=== PATIENT | female | born 1960 | race Hispanic/Latino ===

== ENCOUNTER 2024-01-07 00:18 | Emergency (ER) | payer BC ==
[2024-01-07 01:11] LABS: Actual Bicarbonate (HCO3v) 23.6 mEq/L (22-28); Base Excess -0.1 mEq/L (-2.0 to +3.0); Calcium, Ionized (venous) 1.12 mmol/L (1.16-1.32); Chloride (VBG) 104 mmol/L (98-106); Hematocrit-VBG 42 % (36.0-47.0); Hemoglobin (Hb) 14.4 g/dL (11.7-16.1); Potassium (VBG) 3.69 mmol/L (3.70-5.30); Sodium 140 mmol/L (133-146); pH (venous) 7.441 (7.32-7.43)
[2024-01-07 01:23] LABS: #Eosinphils 0.3 thou/uL (0.0-0.7); #Monocytes 0.7 thou/uL (0.11-0.59); #Neutrophils 7.1 thou/uL (1.40-6.50); %Basophils 0.2 % (0.0-1.0); %Eosinophils 2.9 % (0.0-10.0); %Lymphocytes 17.4 % (21.0-51.0); %Monocytes 7.3 % (0.0-10.0); %Neutrophils 72.1 % (42.0-75.0); Hemoglobin 13.5 g/dL (12.0-16.0); Mean Corpuscular HGB CONC 33.8 g/dL (32.0-36.0); Mean Corpuscular Hemoglobin 29.5 pg (27.0-31.0); Mean Corpuscular Volume 87.5 fl (78.0-98.0); Mean Platelet Volume 9.4 fL (7.4-10.4); Platelet Count 343 10x3/uL (130-400); RBC Distribution Width 12.4 % (11.5-14.5); Red Blood Cell (RBC) Count 4.57 mill/uL (4.20-5.40); White Blood Cell (WBC) Count 9.8 10x3/uL (4.8-10.8)
[2024-01-07 01:46] LABS: Troponin I Less than 0.010 ng/mL (< 0.028)
[2024-01-07 01:53] LABS: ALT (SGPT) 30 U/L (8-55); AST (SGOT) 26 U/L (5-34); Albumin 4.3 g/dL (3.4-4.8); Alkaline Phosphatase 125 U/L (40-110); Anion Gap 17 mmol/L (10-20); BUN (Urea Nitrogen) 14 mg/dL (9.8-20.1); Bilirubin, Total 0.3 mg/dL (0.2-1.2); Calc. Creatinine Clearance 0 mL/min (70-130); Calcium 9.5 mg/dL (7.8-10.44); Carbon Dioxide 19 mmol/L (23-31); Chloride 105 mmol/L (98-107); Estimated GFR 93; Globulin 3.8 g/dL (2.4-3.5); Glucose 213 mg/dL (80-115); Lipase 19 U/L (8-78); Magnesium 1.9 mg/dL (1.6-2.6); Potassium 4.3 mmol/L (3.5-5.1); Protein, Total 8.1 g/dL (5.8-8.1); Sodium 137 mmol/L (136-145)
[2024-01-07 01:59] LABS: Phosphorus 2.2 mg/dL (2.3-4.7)
[2024-01-07] MEDS ORDERED: Aspirin Chewable 81 MG TAB ONE (02:02)
[2024-01-07 03:58] LABS: Bilirubin Negative (Negative); Blood, Urine Trace (Negative); CAUTI Indications for Culture Pelvic or flank pain; Clarity Clear (Clear); Glucose, Urine (Dipstick) 200 mg/dL (Negative); Ketone, Urine Negative (Negative); Leukocyte Negative Leu/uL (Negative); Nitrite Negative (Negative); Protein, Urine (Dipstick) Negative (Neg-Trace); RBC/HPF 0-3 HPF (0-3); Specific Gravity, Urine 1.006 (1.002-1.036); Squamous Epithelial None Seen HPF (0-3); Urobilinogen Normal mg/dL (Less than 2); WBC/HPF 0-3 HPF (0-3); pH, Urine 6.5 (5.0-9.0)
[2024-01-07 03:59] LABS: Bacteria/HPF 1+ HPF (None Seen)
[2024-01-07 04:00] LABS: Urine Culture Reflex No No
== END 2024-01-07 05:06 | disposition home or self-care (01) ==
LOC: ERS 00:18
DX: E11.65 Type 2 diabetes mellitus with hyperglycemia (principal); Z79.84 Long term (current) use of oral hypoglycemic drugs
CPT/HCPCS: 36416; 80053; 81001; 82010; 82805; 83690; 83735; 84100; 84484; 85025; 93005

== ENCOUNTER 2024-07-14 22:38 | Inpatient (IN) | payer BC, MEDICARE ==
[2024-07-14 22:54] LABS: #Basophils 0.03 10x3/uL (0.0-0.2); %Basophils 0.4 % (0.0-1.0); %Eosinophils 2.9 % (0.0-10.0); %Monocytes 9.8 % (0.0-10.0); %Neutrophils 51.8 % (42.0-75.0); Hematocrit 41.2 % (36.0-47.0); Hemoglobin 13.7 g/dL (12.0-16.0); Mean Corpuscular HGB CONC 33.3 g/dL (32.0-36.0); Mean Corpuscular Hemoglobin 30.5 pg (27.0-31.0); Mean Corpuscular Volume 91.8 fL (78.0-98.0); Mean Platelet Volume 9.2 fL (7.4-10.4); Platelet Count 393 10x3/uL (130-400); RBC Distribution Width 13.4 % (11.5-14.5); Red Blood Cell (RBC) Count 4.49 mill/uL (4.20-5.40)
[2024-07-14 23:07] LABS: ALT (SGPT) 18 U/L (8-55); AST (SGOT) 24 U/L (5-34); Alkaline Phosphatase 89 U/L (40-110); Anion Gap 14 mmol/L (10-20); BUN (Urea Nitrogen) 24 mg/dL (9.8-20.1); Bilirubin, Total 0.3 mg/dL (0.2-1.2); Calc. Creatinine Clearance 0 mL/min (70-130); Carbon Dioxide 21 mmol/L (23-31); Chloride 108 mmol/L (98-107); Estimated GFR 71; Globulin 4.4 g/dL (2.4-3.5); Glucose 124 mg/dL (80-115); Potassium 4.1 mmol/L (3.5-5.1); Protein, Total 8.4 g/dL (5.8-8.1); Sodium 139 mmol/L (136-145)
[2024-07-14 23:32] LABS: Troponin I Less than 0.010 ng/mL (< 0.028)
[2024-07-15] MEDS ORDERED: Ondansetron PF 4 MG/2 ML Vial IVP PRN (01:39)
[2024-07-15] MEDS ORDERED: Acetaminophen 650 MG Suppository PR PRN (01:39)
[2024-07-15] MEDS ORDERED: Acetaminophen 325 MG TAB PO PRN (01:39)
[2024-07-15] MEDS ORDERED: Ondansetron ODT 4 MG TAB PO PRN (01:39)
[2024-07-15 01:46] VITALS: BMI 38.9
[2024-07-15 03:06] LABS: #Basophils Less than 0.03 10x3/uL (0.0-0.2); %Basophils 0.2 % (0.0-1.0); %Eosinophils 1.4 % (0.0-10.0); %Lymphocytes 18.6 % (21.0-51.0); %Monocytes 7.7 % (0.0-10.0); %Neutrophils 71.7 % (42.0-75.0); Hematocrit 37.6 % (36.0-47.0); Mean Corpuscular HGB CONC 31.9 g/dL (32.0-36.0); Mean Corpuscular Hemoglobin 30.2 pg (27.0-31.0); Mean Corpuscular Volume 94.5 fL (78.0-98.0); Platelet Count 316 10x3/uL (130-400); RBC Distribution Width 13.2 % (11.5-14.5); Red Blood Cell (RBC) Count 3.98 mill/uL (4.20-5.40)
[2024-07-15 03:31] LABS: ALT (SGPT) 15 U/L (8-55); AST (SGOT) 19 U/L (5-34); Albumin 3.5 g/dL (3.4-4.8); Alkaline Phosphatase 86 U/L (40-110); Anion Gap 14 mmol/L (10-20); BUN (Urea Nitrogen) 19 mg/dL (9.8-20.1); Bilirubin, Total 0.3 mg/dL (0.2-1.2); Calc. Creatinine Clearance 111 mL/min (70-130); Calcium 8.8 mg/dL (7.8-10.44); Carbon Dioxide 18 mmol/L (23-31); Chloride 112 mmol/L (98-107); Estimated GFR 94; Globulin 3.3 g/dL (2.4-3.5); Glucose 163 mg/dL (80-115); Potassium 3.3 mmol/L (3.5-5.1); Protein, Total 6.8 g/dL (5.8-8.1); Sodium 141 mmol/L (136-145)
[2024-07-15 05:04] LABS: Troponin I 1.828 ng/mL (< 0.028)
[2024-07-15] MEDS ORDERED: Electrolyte Replacement Protocol 1 EACH FS SCH (06:19)
[2024-07-15] MEDS: Enoxaparin 100 MG (1 mL) SYRINGE SC SCH ×2 (06:34→21:16)
[2024-07-15 06:36] LABS: Troponin I 2.087 ng/mL (< 0.028)
[2024-07-15] MEDS: Famotidine 20 MG TAB PO SCH (08:36)
[2024-07-15] MEDS: Lisinopril 10 MG TAB PO SCH (08:36)
[2024-07-15] MEDS: Famotidine/PF 20 mg/2ml Vial SLOW IVP SCH (08:42)
[2024-07-15] MEDS: Potassium Chloride 20 MEQ TAB PO SCH (08:43)
[2024-07-15] MEDS: cefTRIAXone\\ROCEPHIN 1 GM in Sodium Chloride 0.9% 100 ML IVPB SCH (09:35)
[2024-07-15] MEDS: Azithromycin 500 MG in Sodium Chloride 0.9% 250 ML 250 ML IVPB SCH (09:42)
[2024-07-15 10:31] LABS: Critical Call Chem Troponin I RESULT DECREASING; Troponin I 1.424 ng/mL (< 0.028)
[2024-07-15] MEDS: Atorvastatin Calcium 40 MG TAB PO SCH (20:12)
[2024-07-15] MEDS: Glimepiride 4 MG TAB PO SCH (21:56)
[2024-07-16 04:47] LABS: #Basophils Less than 0.03 10x3/uL (0.0-0.2); %Basophils 0.3 % (0.0-1.0); %Eosinophils 3.5 % (0.0-10.0); %Lymphocytes 36.9 % (21.0-51.0); %Monocytes 13.3 % (0.0-10.0); %Neutrophils 45.8 % (42.0-75.0); Hemoglobin 11.9 g/dL (12.0-16.0); Mean Corpuscular HGB CONC 33.1 g/dL (32.0-36.0); Mean Corpuscular Hemoglobin 29.9 pg (27.0-31.0); Mean Corpuscular Volume 90.5 fL (78.0-98.0); Mean Platelet Volume 9.4 fL (7.4-10.4); Platelet Count 308 10x3/uL (130-400); RBC Distribution Width 13.4 % (11.5-14.5); Red Blood Cell (RBC) Count 3.98 mill/uL (4.20-5.40)
[2024-07-16 05:01] LABS: Anion Gap 10 mmol/L (10-20); BUN (Urea Nitrogen) 15 mg/dL (9.8-20.1); Calc. Creatinine Clearance 123 mL/min (70-130); Calcium 8.6 mg/dL (7.8-10.44); Carbon Dioxide 21 mmol/L (23-31); Chloride 114 mmol/L (98-107); Estimated GFR 97; Glucose 126 mg/dL (80-115); Potassium 3.6 mmol/L (3.5-5.1); Sodium 141 mmol/L (136-145)
[2024-07-16] MEDS: metFORMIN 500 MG TAB PO SCH (09:22)
[2024-07-16] MEDS: Carvedilol 3.125 MG TAB PO SCH (09:22)
[2024-07-16] MEDS: Potassium Chloride 20 MEQ TAB PO SCH (14:10)
[2024-07-17 05:04] LABS: #Basophils Less than 0.03 10x3/uL (0.0-0.2); %Basophils 0.3 % (0.0-1.0); %Eosinophils 3.6 % (0.0-10.0); %Lymphocytes 39.3 % (21.0-51.0); %Monocytes 12.9 % (0.0-10.0); %Neutrophils 43.7 % (42.0-75.0); Hematocrit 35.7 % (36.0-47.0); Hemoglobin 11.6 g/dL (12.0-16.0); Mean Corpuscular HGB CONC 32.5 g/dL (32.0-36.0); Mean Corpuscular Hemoglobin 29.7 pg (27.0-31.0); Mean Corpuscular Volume 91.5 fL (78.0-98.0); Mean Platelet Volume 9.6 fL (7.4-10.4); Platelet Count 317 10x3/uL (130-400); RBC Distribution Width 13.6 % (11.5-14.5)
[2024-07-17 05:26] LABS: Anion Gap 10 mmol/L (10-20); BUN (Urea Nitrogen) 16 mg/dL (9.8-20.1); Calc. Creatinine Clearance 121 mL/min (70-130); Calcium 8.8 mg/dL (7.8-10.44); Carbon Dioxide 21 mmol/L (23-31); Chloride 112 mmol/L (98-107); Estimated GFR 97; Glucose 130 mg/dL (80-115); Potassium 3.9 mmol/L (3.5-5.1); Sodium 139 mmol/L (136-145)
[2024-07-18 05:36] LABS: #Basophils Less than 0.03 10x3/uL (0.0-0.2); %Basophils 0.4 % (0.0-1.0); %Eosinophils 4.8 % (0.0-10.0); %Lymphocytes 46.1 % (21.0-51.0); %Monocytes 10.6 % (0.0-10.0); %Neutrophils 37.9 % (42.0-75.0); Hematocrit 35.9 % (36.0-47.0); Hemoglobin 11.6 g/dL (12.0-16.0); Mean Corpuscular HGB CONC 32.3 g/dL (32.0-36.0); Mean Corpuscular Hemoglobin 30.9 pg (27.0-31.0); Mean Corpuscular Volume 95.7 fL (78.0-98.0); Mean Platelet Volume 9.5 fL (7.4-10.4); Platelet Count 288 10x3/uL (130-400); RBC Distribution Width 13.3 % (11.5-14.5); Red Blood Cell (RBC) Count 3.75 mill/uL (4.20-5.40)
[2024-07-18 05:56] LABS: Anion Gap 13 mmol/L (10-20); BUN (Urea Nitrogen) 14 mg/dL (9.8-20.1); Calc. Creatinine Clearance 113 mL/min (70-130); Carbon Dioxide 19 mmol/L (23-31); Chloride 111 mmol/L (98-107); Estimated GFR 95; Glucose 126 mg/dL (80-115); Potassium 3.5 mmol/L (3.5-5.1); Sodium 139 mmol/L (136-145)
[2024-07-18] MEDS: Potassium Chloride 20 MEQ TAB PO SCH (08:31)
[2024-07-18] MEDS: Azithromycin 500 MG VIAL ONE (13:31)
[2024-07-18 13:33] LABS: Magnesium 1.8 mg/dL (1.6-2.6)
[2024-07-18] MEDS: Magnesium 2 GM/50 ML(in water) 2 GM in Premix 1 BAG IVPB SCH (15:49)
[2024-07-19 03:46] LABS: #Basophils 0.04 10x3/uL (0.0-0.2); %Basophils 0.6 % (0.0-1.0); %Eosinophils 3.7 % (0.0-10.0); %Lymphocytes 39.8 % (21.0-51.0); %Monocytes 11.8 % (0.0-10.0); %Neutrophils 43.9 % (42.0-75.0); Hematocrit 36.3 % (36.0-47.0); Hemoglobin 11.7 g/dL (12.0-16.0); Mean Corpuscular HGB CONC 32.2 g/dL (32.0-36.0); Mean Corpuscular Hemoglobin 29.8 pg (27.0-31.0); Mean Corpuscular Volume 92.4 fL (78.0-98.0); Mean Platelet Volume 9.4 fL (7.4-10.4); Platelet Count 313 10x3/uL (130-400); RBC Distribution Width 13.2 % (11.5-14.5); Red Blood Cell (RBC) Count 3.93 mill/uL (4.20-5.40)
[2024-07-19 04:07] LABS: Anion Gap 10 mmol/L (10-20); BUN (Urea Nitrogen) 15 mg/dL (9.8-20.1); Calc. Creatinine Clearance 118 mL/min (70-130); Calcium 9.1 mg/dL (7.8-10.44); Carbon Dioxide 25 mmol/L (23-31); Chloride 110 mmol/L (98-107); Estimated GFR 96; Glucose 141 mg/dL (80-115); Potassium 3.8 mmol/L (3.5-5.1); Sodium 141 mmol/L (136-145)
[2024-07-19] MEDS ORDERED: Iopamidol 370 76% 100 ML VIAL ONE (08:16)
[2024-07-19] MEDS ORDERED: Heparin 10,000 UNITS/ 10 ML VIAL ONE ×2 (08:45→14:31)
[2024-07-19] MEDS ORDERED: Verapamil 5 MG/2 ML VIAL ONE ×2 (08:45→14:31)
[2024-07-19] MEDS ORDERED: Midazolam HCl 2 mg/2 ml Vial ONE (14:31)
[2024-07-19] MEDS ORDERED: Nitroglycerin 50 MG/250 ML BOT 250 ML ONE (14:31)
[2024-07-19] MEDS ORDERED: fentaNYL 50 mcg/mL 1 mL Vial ONE (14:31)
[2024-07-19] MEDS ORDERED: Acetaminophen/Codeine 30-300mg Tablet PO PRN ×2 (16:41)
[2024-07-19] MEDS ORDERED: Sodium Chloride 0.9% 200 ML IV PRN (16:41)
[2024-07-19] MEDS ORDERED: Nitroglycerin 0.4 MG TAB (25 Tab Bottle) SL PRN (16:41)
[2024-07-19] MEDS ORDERED: Diazepam 5 MG TAB PO PRN (17:05)
[2024-07-19] MEDS ORDERED: Communication Order-Pharmacy FS ONE (17:05)
[2024-07-20 04:08] LABS: #Basophils Less than 0.03 10x3/uL (0.0-0.2); %Basophils 0.4 % (0.0-1.0); %Eosinophils 3.8 % (0.0-10.0); %Lymphocytes 34.9 % (21.0-51.0); %Monocytes 12.3 % (0.0-10.0); %Neutrophils 48.4 % (42.0-75.0); Hematocrit 35.6 % (36.0-47.0); Hemoglobin 11.5 g/dL (12.0-16.0); Mean Corpuscular HGB CONC 32.3 g/dL (32.0-36.0); Mean Corpuscular Hemoglobin 30.3 pg (27.0-31.0); Mean Corpuscular Volume 93.9 fL (78.0-98.0); Mean Platelet Volume 9.3 fL (7.4-10.4); Platelet Count 322 10x3/uL (130-400); RBC Distribution Width 13.2 % (11.5-14.5); Red Blood Cell (RBC) Count 3.79 mill/uL (4.20-5.40)
[2024-07-20 04:20] LABS: Anion Gap 11 mmol/L (10-20); BUN (Urea Nitrogen) 14 mg/dL (9.8-20.1); Calc. Creatinine Clearance 113 mL/min (70-130); Carbon Dioxide 24 mmol/L (23-31); Cardiac Risk 2.7 (Less than 4.5); Chloride 110 mmol/L (98-107); Cholesterol 103 mg/dl (< 200 Desired); Estimated GFR 95; Glucose 93 mg/dL (80-115); HDL Cholesterol 38 mg/dL (>60 Neg Risk); LDL Cholesterol, Calculated 53 mg/dL; Potassium 3.6 mmol/L (3.5-5.1); Sodium 141 mmol/L (136-145); Triglycerides 59 mg/dL (Less than 150)
[2024-07-20] MEDS: FlunisoLIDE 0.025% Nasal Spray 25 ml Bottle EA NARE SCH (10:01)
[2024-07-20] MEDS ORDERED: Dexamethasone 4 mg/ml Vial ONE (10:26)
[2024-07-20] MEDS ORDERED: EPINEPHrine 1 MG/ML VIAL ONE (10:26)
[2024-07-20] MEDS ORDERED: PHENYLEPHRINE-NS 100 MCG/ML 10 ML SYRINGE ONE ×2 (10:26→11:48)
[2024-07-20] MEDS ORDERED: Bupivacaine PF 0.5% 30 ML VIAL ONE (10:27)
[2024-07-20] MEDS ORDERED: Albumin 5% 500 ML ONE (10:27)
[2024-07-20] MEDS ORDERED: Midazolam HCl 2 mg/2 ml Vial ONE ×3 (11:15→16:01)
[2024-07-20] MEDS ORDERED: Sodium Chloride 0.9% 100 ML ONE (11:36)
[2024-07-20] MEDS ORDERED: CEFAZOLIN 2 GM VIAL ONE (11:36)
[2024-07-20] MEDS ORDERED: Fentanyl 250 MCG/5 ML VIAL ONE (11:46)
[2024-07-20] MEDS ORDERED: PROPOFOL 20 ML ONE ×2 (11:48→16:03)
[2024-07-20] MEDS ORDERED: Etomidate 40 MG (20 mL) VIAL ONE (11:49)
[2024-07-20] MEDS ORDERED: CEFAZOLIN 2 GM in Sodium Chloride 0.9% 100 ML IVPB SCH (12:00)
[2024-07-20] MEDS ORDERED: Thrombin 5000 UNITS/5 ML VIAL ONE (12:59)
[2024-07-20] MEDS ORDERED: Heparin 5,000 UNITS/ML VIAL ONE (12:59)
[2024-07-20] MEDS ORDERED: Calcium Chloride 1 GM/10 ML Abboject SYRINGE ONE (12:59)
[2024-07-20] MEDS ORDERED: Cardioplegic Soln 1,000 ML BAG ONE (12:59)
[2024-07-20] MEDS ORDERED: Heparin 30,000 units/30 ml VIAL ONE (12:59)
[2024-07-20] MEDS ORDERED: Labetalol HCl 100 MG/20 ML VIAL ONE (12:59)
[2024-07-20] MEDS ORDERED: Lidocaine 1% PF 5 ML VIAL ONE (12:59)
[2024-07-20] MEDS ORDERED: Papaverine 60 MG/2 ML VIAL ONE (12:59)
[2024-07-20] MEDS ORDERED: Lidocaine 2% PF 100 mg/5 ml Syringe ONE (12:59)
[2024-07-20] MEDS ORDERED: Magnesium 5 GM/10 ML VIAL ONE (12:59)
[2024-07-20] MEDS ORDERED: Potassium Chloride 60 mEq (30 mL) VIAL ONE (12:59)
[2024-07-20] MEDS ORDERED: Sodium Bicarb 50 mEq/50 ML VIAL ONE (12:59)
[2024-07-20] MEDS ORDERED: Aminocaproic Acid 5 GM/20 ML VIAL ONE (12:59)
[2024-07-20] MEDS ORDERED: Mannitol 12.5 GM/50 ML ONE (12:59)
[2024-07-20] MEDS ORDERED: Vancomycin 1 GM VIAL ONE (12:59)
[2024-07-20] MEDS ORDERED: Protamine Sulfate 250 MG/25 ML VIAL ONE (12:59)
[2024-07-20] MEDS ORDERED: NOREPINEPHRINE 8 MG/250 ML-D5W 250 ML ONE (14:12)
[2024-07-20] MEDS ORDERED: Rocuronium Bromide 10 MG/ML (10ML VIAL) ONE (14:13)
[2024-07-20] MEDS ORDERED: Nitroglycerin 50 MG/250 ML BOT 250 ML IVPB PRN (16:21)
[2024-07-20] MEDS ORDERED: Albumin 5% 12.5 GM (250 mL) BOT IVPB PRN (16:21)
[2024-07-20] MEDS ORDERED: Post-Op Insulin Drip Protocol IVPB SCH (16:21)
[2024-07-20] MEDS ORDERED: Mag-Al 1200 mg/1200 mg/30 ML UDCUP PO PRN (16:21)
[2024-07-20] MEDS ORDERED: NOREPINEPHRINE 8 MG/250 ML-D5W 250 ML IVPB PRN (16:21)
[2024-07-20] MEDS ORDERED: Ipratropium/Albuterol 3 ML NEB NEB PRN (16:21)
[2024-07-20] MEDS ORDERED: Guaifenesin DM 100-10/5 ML UDCUP PO PRN (16:21)
[2024-07-20] MEDS ORDERED: fentaNYL 50 mcg/mL 1 mL Vial SLOW IVP PRN (16:21)
[2024-07-20] MEDS ORDERED: Morphine 2 MG/ML VIAL SLOW IVP PRN (16:21)
[2024-07-20] MEDS ORDERED: Bisacodyl 10 MG SUPP PR PRN (16:21)
[2024-07-20] MEDS ORDERED: Ondansetron PF 4 MG/2 ML Vial IVP PRN (16:21)
[2024-07-20] MEDS ORDERED: hydrALAZINE 20 MG/ML VIAL SLOW IVP PRN (16:21)
[2024-07-20] MEDS ORDERED: Dextrose 5% in Water 1,000 ML IV PRN (16:30)
[2024-07-20] MEDS ORDERED: Dextrose 50% Abboject 50 ML SYRINGE SLOW IVP PRN (16:30)
[2024-07-20] MEDS ORDERED: Glucagon 1 MG/ML KIT SC PRN (16:30)
[2024-07-20] MEDS ORDERED: Insulin Regular, Human 100 UNIT/ML 10 ML VIAL SC PRN (16:30)
[2024-07-20 16:40] LABS: Actual Bicarbonate (HCO3a) 20.9 mEq/L (22-28); Base Excess (BEa) -4.1 mEq/L (-2.0 to +3.0); CO2 Tension 38.1 mmHg (35.0-45.0); Calcium, Ionized (arterial) 1.17 mmol/L (1.12-1.30); Carboxyhemoglobin (COHb) 0.7 gm% (0.0-3.0); Hematocrit-ABG 29 % (36.0-47.0); Hemoglobin (Hb) 9.7 g/dL (12.0-16.0); O2 Tension (PaO2), arterial 67.1 mmHg (> 80.0); Potassium - ABG Lab 3.57 mmol/L (3.70-5.30); pH, Arterial 7.358 (7.35-7.45)
[2024-07-20 16:44] LABS: ALV-art Gradient 313.075 mmHg (0-20); Puncture Site Arterial Line
[2024-07-20 17:06] LABS: Anion Gap 10 mmol/L (10-20); BUN (Urea Nitrogen) 11 mg/dL (9.8-20.1); Calc. Creatinine Clearance 127 mL/min (70-130); Calcium 8.1 mg/dL (7.8-10.44); Carbon Dioxide 21 mmol/L (23-31); Chloride 117 mmol/L (98-107); Estimated GFR 98; Glucose 182 mg/dL (80-115); Potassium 3.6 mmol/L (3.5-5.1); Sodium 144 mmol/L (136-145)
[2024-07-20 17:08] LABS: #Basophils Less than 0.03 10x3/uL (0.0-0.2); %Basophils 0.2 % (0.0-1.0); %Eosinophils 1.1 % (0.0-10.0); %Lymphocytes 13.7 % (21.0-51.0); %Neutrophils 79.9 % (42.0-75.0); Hematocrit 27.9 % (36.0-47.0); Hemoglobin 8.8 g/dL (12.0-16.0); Mean Corpuscular HGB CONC 31.5 g/dL (32.0-36.0); Mean Corpuscular Hemoglobin 30.4 pg (27.0-31.0); Mean Corpuscular Volume 96.5 fL (78.0-98.0); Mean Platelet Volume 9.2 fL (7.4-10.4); Platelet Count 187 10x3/uL (130-400); RBC Distribution Width 13.4 % (11.5-14.5); Red Blood Cell (RBC) Count 2.89 mill/uL (4.20-5.40)
[2024-07-20 17:11] LABS: INR-International Normal Ratio 1.4; Prothrombin Time 16.8 sec (12.0-14.7)
[2024-07-20 17:12] LABS: PTT 37.6 sec (22.9-36.1)
[2024-07-20] MEDS: INSULIN REGULAR IN 0.9 % NACL 100 UNITS in Premix 1 BAG IVPB SCH (17:19)
[2024-07-20] MEDS: Magnesium 2 GM/50 ML(in water) 2 GM in Premix 1 BAG IVPB SCH (17:19)
[2024-07-20] MEDS: D5 1/2 NS w/20 mEq KCL 1,000 ML IV SCH (17:19)
[2024-07-20] MEDS: Ketorolac Tromethamine 30 MG (1 mL) VIAL IVP SCH (17:20)
[2024-07-20] MEDS: Albumin 5% 12.5 GM (250 mL) BOT IVPB PRN (17:30)
[2024-07-20] MEDS: Potassium Chloride 20 MEQ (100 mL) BAG IVPB PRN (18:39)
[2024-07-20] MEDS: Famotidine/PF 20 mg/2ml Vial SLOW IVP SCH (20:16)
[2024-07-20] MEDS: CEFAZOLIN 2 GM in Sodium Chloride 0.9% 100 ML IVPB SCH (20:16)
[2024-07-20 21:03] LABS: Actual Bicarbonate (HCO3a) 19.7 mEq/L (22-28); Base Excess (BEa) -4.1 mEq/L (-2.0 to +3.0); CO2 Tension 31.6 mmHg (35.0-45.0); Calcium, Ionized (arterial) 1.14 mmol/L (1.12-1.30); Carboxyhemoglobin (COHb) 0.6 gm% (0.0-3.0); Hematocrit-ABG 31 % (36.0-47.0); Hemoglobin (Hb) 10.5 g/dL (12.0-16.0); O2 Tension (PaO2), arterial 98.8 mmHg (> 80.0); Potassium - ABG Lab 3.69 mmol/L (3.70-5.30); pH, Arterial 7.413 (7.35-7.45)
[2024-07-20 21:06] LABS: Puncture Site LINE
[2024-07-20] MEDS: Sodium Bicarb 50 MEQ/50 ML Abboject 8.4% SYRINGE IVP SCH (21:10)
[2024-07-20] MEDS: fentaNYL 50 mcg/mL 1 mL Vial SLOW IVP PRN (21:27)
[2024-07-20] MEDS: Sodium Bicarb 50 MEQ/50 ML Abboject 8.4% SYRINGE ONE (21:27)
[2024-07-20] MEDS: Atorvastatin Calcium 40 MG TAB PO SCH (21:27)
[2024-07-20 23:39] LABS: Hematocrit 31.5 % (36.0-47.0); Hemoglobin 10.3 g/dL (12.0-16.0)
[2024-07-20 23:48] LABS: Potassium 3.4 mmol/L (3.5-5.1)
[2024-07-21 04:31] LABS: #Basophils Less than 0.03 10x3/uL (0.0-0.2); #Eosinphils Less than 0.03 10x3/uL (0.0-0.7); %Basophils 0.1 % (0.0-1.0); %Lymphocytes 6.8 % (21.0-51.0); %Monocytes 6.9 % (0.0-10.0); %Neutrophils 85.9 % (42.0-75.0); Hematocrit 30.7 % (36.0-47.0); Mean Corpuscular HGB CONC 32.6 g/dL (32.0-36.0); Mean Corpuscular Hemoglobin 30.9 pg (27.0-31.0); Mean Corpuscular Volume 94.8 fL (78.0-98.0); Mean Platelet Volume 9.4 fL (7.4-10.4); Platelet Count 202 10x3/uL (130-400); RBC Distribution Width 13.4 % (11.5-14.5); Red Blood Cell (RBC) Count 3.24 mill/uL (4.20-5.40)
[2024-07-21 04:54] LABS: Anion Gap 10 mmol/L (10-20); BUN (Urea Nitrogen) 9 mg/dL (9.8-20.1); Calc. Creatinine Clearance 129 mL/min (70-130); Calcium 8.2 mg/dL (7.8-10.44); Carbon Dioxide 21 mmol/L (23-31); Chloride 116 mmol/L (98-107); Estimated GFR 99; Glucose 134 mg/dL (80-115); Potassium 3.3 mmol/L (3.5-5.1); Sodium 144 mmol/L (136-145)
[2024-07-21] MEDS: traMADol HCl 50 MG TAB PO PRN (05:16)
[2024-07-21] MEDS ORDERED: Glucagon 1 MG/ML KIT IM PRN (06:29)
[2024-07-21] MEDS ORDERED: Dextrose 50% Abboject 50 ML SYRINGE SLOW IVP PRN (06:29)
[2024-07-21] MEDS ORDERED: Dextrose 5% in Water 1,000 ML IV PRN (06:29)
[2024-07-21] MEDS: Magnesium 2 GM/50 ML(in water) 2 GM in Premix 1 BAG IVPB SCH (09:27)
[2024-07-21] MEDS: Clopidogrel Bisulfate 75 MG TAB PO SCH (09:27)
[2024-07-21] MEDS: Carvedilol 3.125 MG TAB PO SCH (09:27)
[2024-07-21] MEDS: Glimepiride 4 MG TAB PO SCH (09:28)
[2024-07-21] MEDS: Pantoprazole DR 40 MG TAB PO SCH (09:28)
[2024-07-21] MEDS: Aspirin 325 MG TAB PO SCH (09:28)
[2024-07-21] MEDS: Pioglitazone HCl 45 MG TAB PO SCH (09:28)
[2024-07-21] MEDS: Insulin Lispro 100 UNIT/ML 10 ML VIAL SC PRN (11:43)
[2024-07-21 14:38] VITALS: BMI 38.5
[2024-07-22] MEDS: Bisacodyl 5 MG TAB PO PRN (12:29)
[2024-07-22] MEDS ORDERED: Artificial Tear Ophth Sol 15 ML BOT EA EYE PRN (21:01)
[2024-07-22] MEDS ORDERED: traMADol HCl 50 MG TAB PO PRN ×2 (21:01)
[2024-07-22] MEDS ORDERED: Bisacodyl 5 MG TAB PO PRN (21:01)
[2024-07-22] MEDS ORDERED: Nitroglycerin 0.4 MG TAB (25 Tab Bottle) SL PRN (21:01)
[2024-07-22] MEDS ORDERED: Guaifenesin DM 100-10/5 ML UDCUP PO PRN (21:01)
[2024-07-22] MEDS ORDERED: Mag-Al 1200 mg/1200 mg/30 ML UDCUP PO PRN (21:01)
[2024-07-22] MEDS ORDERED: Mineral Oil ENEMA PR PRN (21:01)
[2024-07-22] MEDS ORDERED: diphenhydrAMINE 25 MG CAP PO PRN (21:01)
[2024-07-22] MEDS ORDERED: Bisacodyl 10 MG SUPP PR PRN (21:01)
[2024-07-22] MEDS: Furosemide 40 MG TAB PO SCH (21:20)
[2024-07-22] MEDS: Aspirin 325 mg Enteric Coated Tablet PO SCH (21:21)
[2024-07-22] MEDS: Potassium Chloride 10 MEQ TAB PO SCH (21:21)
[2024-07-23] MEDS: Furosemide 40 MG TAB PO SCH (10:13)
[2024-07-23] MEDS: Aspirin 325 mg Enteric Coated Tablet PO SCH (10:13)
[2024-07-23] MEDS: Potassium Chloride 10 MEQ TAB PO SCH (10:15)
[2024-07-24 05:06] LABS: Hematocrit 28.3 % (36.0-47.0); Hemoglobin 9.2 g/dL (12.0-16.0); Mean Corpuscular HGB CONC 32.5 g/dL (32.0-36.0); Mean Corpuscular Hemoglobin 30.6 pg (27.0-31.0); Mean Platelet Volume 10.1 fL (7.4-10.4); Platelet Count 228 10x3/uL (130-400); RBC Distribution Width 13.8 % (11.5-14.5); Red Blood Cell (RBC) Count 3.01 mill/uL (4.20-5.40)
[2024-07-24 05:33] LABS: Anion Gap 13 mmol/L (10-20); BUN (Urea Nitrogen) 20 mg/dL (9.8-20.1); Calc. Creatinine Clearance 124 mL/min (70-130); Calcium 8.7 mg/dL (7.8-10.44); Carbon Dioxide 22 mmol/L (23-31); Chloride 110 mmol/L (98-107); Estimated GFR 97; Glucose 163 mg/dL (80-115); Magnesium 1.9 mg/dL (1.6-2.6); Potassium 3.6 mmol/L (3.5-5.1); Sodium 141 mmol/L (136-145)
[2024-07-24] MEDS: Carvedilol 6.25 MG TAB PO SCH (08:11)
[2024-07-24] MEDS: Potassium Bicarbonate/Cit Ac 20 MEQ TAB PO SCH (08:12)
[2024-07-24] MEDS: Acetaminophen 325 MG TAB PO PRN (08:12)
[2024-07-24] MEDS: Magnesium Oxide 400 MG TAB PO SCH (08:12)
[2024-07-24] MEDS: Milk Of Magnesia 30 ML UDCUP PO PRN (08:14)
[2024-07-24] MEDS: Lisinopril 5 MG TAB PO SCH (20:18)
[2024-07-24] MEDS: traMADol HCl 50 MG TAB PO PRN (20:18)
[2024-07-25] MEDS: Lisinopril 10 MG TAB PO SCH (08:19)
[2024-07-25 12:49] VITALS: BP 123/59; TEMP 97.9
[2024-07-25 14:57] LABS: Actual Bicarbonate (HCO3a) 18.7 mEq/L (22-28); Analyzer IN Cardio OR; Base Excess (BEa) -7.9 mEq/L (-2.0 to +3.0); CO2 Tension 42.4 mmHg (35.0-45.0); Calcium, Ionized (arterial) 1.16 mmol/L (1.12-1.30); Carboxyhemoglobin (COHb) 0.3 gm% (0.0-3.0); Hematocrit-ABG 34 % (36.0-47.0); Hemoglobin (Hb) 11.7 g/dL (12.0-16.0); O2 Tension (PaO2), arterial 334.1 mmHg (> 80.0); Potassium - ABG Lab 3.48 mmol/L (3.70-5.30); pH, Arterial 7.263 (7.35-7.45)
[2024-07-25 14:57] LABS: Actual Bicarbonate (HCO3a) 20.5 mEq/L (22-28); Analyzer IN Cardio OR; Base Excess (BEa) -3.5 mEq/L (-2.0 to +3.0); Calcium, Ionized (arterial) 1.17 mmol/L (1.12-1.30); Carboxyhemoglobin (COHb) 0.2 gm% (0.0-3.0); Hematocrit-ABG 37 % (36.0-47.0); Hemoglobin (Hb) 12.5 g/dL (12.0-16.0); O2 Tension (PaO2), arterial 211.5 mmHg (> 80.0); Potassium - ABG Lab 3.39 mmol/L (3.70-5.30); pH, Arterial 7.399 (7.35-7.45)
[2024-07-25 14:58] LABS: Actual Bicarbonate (HCO3a) 23.4 mEq/L (22-28); Analyzer IN Cardio OR; Base Excess (BEa) -1.9 mEq/L (-2.0 to +3.0); CO2 Tension 42.5 mmHg (35.0-45.0); Calcium, Ionized (arterial) 1.02 mmol/L (1.12-1.30); Carboxyhemoglobin (COHb) 0.2 gm% (0.0-3.0); Hematocrit-ABG 25 % (36.0-47.0); Hemoglobin (Hb) 8.5 g/dL (12.0-16.0); O2 Tension (PaO2), arterial 384.8 mmHg (> 80.0); Potassium - ABG Lab 4.24 mmol/L (3.70-5.30); pH, Arterial 7.359 (7.35-7.45)
[2024-07-25 14:58] LABS: Actual Bicarbonate (HCO3a) 21.3 mEq/L (22-28); Analyzer IN Cardio OR; CO2 Tension 39.4 mmHg (35.0-45.0); Calcium, Ionized (arterial) 1.16 mmol/L (1.12-1.30); Hematocrit-ABG 26 % (36.0-47.0); Hemoglobin (Hb) 8.7 g/dL (12.0-16.0); O2 Tension (PaO2), arterial 183.2 mmHg (> 80.0); Potassium - ABG Lab 3.95 mmol/L (3.70-5.30)
[2024-07-25 14:58] LABS: Actual Bicarbonate (HCO3a) 25.8 mEq/L (22-28); Analyzer IN Cardio OR; Base Excess (BEa) 1.4 mEq/L (-2.0 to +3.0); CO2 Tension 39.7 mmHg (35.0-45.0); Calcium, Ionized (arterial) 0.99 mmol/L (1.12-1.30); Carboxyhemoglobin (COHb) 0.3 gm% (0.0-3.0); Hematocrit-ABG 25 % (36.0-47.0); Hemoglobin (Hb) 8.4 g/dL (12.0-16.0); O2 Tension (PaO2), arterial 396.2 mmHg (> 80.0); Potassium - ABG Lab 5.84 mmol/L (3.70-5.30); pH, Arterial 7.431 (7.35-7.45)
[2024-07-25 14:59] LABS: Puncture Site Arterial Line
[2024-07-25 14:59] LABS: Puncture Site Arterial Line
[2024-07-25 14:59] LABS: Puncture Site Arterial Line
[2024-07-25 15:00] LABS: Puncture Site Arterial Line
[2024-07-25 15:00] LABS: Puncture Site Arterial Line
== END 2024-07-25 12:54 | disposition home or self-care (01) | DRG 233 ==
LOC: ERS 22:38 → EEVIPCON 07-15 00:28 → 2SW 07-15 00:28 → OBSVTOIN 07-16 14:07 → CCU 07-20 14:08 → 2NO 07-22 19:55
PROVIDERS: ADMIT Student in an Organized Health Care Education/Training Program; ATTEND Family Medicine
PROC: 4A023N7 Measurement of Cardiac Sampling and Pressure, Left Heart, Percutaneous Approach (ICD-10-PCS; 2024-07-19)
PROC: B2151ZZ Fluoroscopy of Left Heart using Low Osmolar Contrast (ICD-10-PCS; 2024-07-19)
PROC: B2111ZZ Fluoroscopy of Multiple Coronary Arteries using Low Osmolar Contrast (ICD-10-PCS; 2024-07-19)
PROC: 02100Z9 Bypass Coronary Artery, One Artery from Left Internal Mammary, Open Approach (ICD-10-PCS; principal; 2024-07-20)
PROC: 021209W Bypass Coronary Artery, Three Arteries from Aorta with Autologous Venous Tissue, Open Approach (ICD-10-PCS; 2024-07-20)
PROC: 06BP0ZZ Excision of Right Saphenous Vein, Open Approach (ICD-10-PCS; 2024-07-20)
PROC: 5A1221Z Performance of Cardiac Output, Continuous (ICD-10-PCS; 2024-07-20)
PROC: 02L70CK Occlusion of Left Atrial Appendage with Extraluminal Device, Open Approach (ICD-10-PCS; 2024-07-20)
PROC: 4A133R1 Monitoring of Arterial Saturation, Peripheral, Percutaneous Approach (ICD-10-PCS; 2024-07-20)
PROC: 3E033XZ Introduction of Vasopressor into Peripheral Vein, Percutaneous Approach (ICD-10-PCS; 2024-07-20)
PROC: 30233J1 Transfusion of Nonautologous Serum Albumin into Peripheral Vein, Percutaneous Approach (ICD-10-PCS; 2024-07-20)
DX: I21.4 Non-ST elevation (NSTEMI) myocardial infarction (principal); J18.9 Pneumonia, unspecified organism; Z68.41 Body mass index [BMI] 40.0-44.9, adult; I50.30 Unspecified diastolic (congestive) heart failure; I25.10 Atherosclerotic heart disease of native coronary artery without angina pectoris; E11.9 Type 2 diabetes mellitus without complications; Z98.890 Other specified postprocedural states; Z79.899 Other long term (current) drug therapy; E66.9 Obesity, unspecified; E87.6 Hypokalemia; E78.00 Pure hypercholesterolemia, unspecified; Z79.82 Long term (current) use of aspirin; I11.0 Hypertensive heart disease with heart failure; Z79.4 Long term (current) use of insulin
CPT/HCPCS: 36415; 36416; 36430; 70450; 71045; 72125; 80048; 80053; 80061; 82805; 83036; 83735; 83880; 84484; 85025; 85027; 85610; 85730; 86850; 86900; 86901; 93005; 93010; 93306; 93458; 93798; 94002; 94760; 96372; 96374; 96375; 96376; 99152; 99153; A4311; A4648; C1751; C1769; C1889; C1894; G0378; J0171; J0456; J0665; J0696; J1100; J1642; J1644; J1650; J1815; J1885; J2001; J2150; J2250; J2440; J2704; J2720; J3010; J3370; J3475; J3480; J3490; J7050; P9045; Q9967; S0017